=== PATIENT | female | born 1935 | race Caucasian/White ===

== ENCOUNTER 2018-08-02 10:05 | Inpatient (IN) | payer OTHER ==
--- NOTE | 2018-08-02 06:43 | PDHPUP ---
History & Physical Update H&P update statement: This history and physical update is based on an assessment of the patient which was completed after admission or registration (within 24 hours), but prior to the surgery/procedure. H&P update: H&P reviewed & patient examined, no change in patient's condition since H&P completed
[~2018-08-02 10:05] MED LIST: BACITRACIN 50,000 UNITS/10 ML SYR IRR ONE; BUPIVACAINE 0.25% 30 ML SDV ONE; CHLORHEXIDINE GLUC HIBICLENS 118 ML BTL TP ONE; EPINEPHrine 1 MG/ML INJ ONE; REFRESH EYE EACHEYE PRN; THROMBIN (BOVINE) 5,000 UNIT VIAL TP ONE; ZOLPIDEM TARTRATE 5 MG TAB PO PRN
[2018-08-02] MEDS ORDERED: GABAPENTIN 300 MG CAP PO ONE (10:45)
[2018-08-02] MEDS ORDERED: ACETAMINOPHEN 500 MG TAB PO ONE (10:45)
[2018-08-02] MEDS ORDERED: ceFAZolin 2 GM/DEXTROSE 100 ML IV ONE (10:45)
[2018-08-02] MEDS ORDERED: DEXAMETHASONE 4 MG/ML VIAL ONE (10:47)
[2018-08-02] MEDS ORDERED: ROCURONIUM 50 MG/5 ML VIAL ONE (10:47)
[2018-08-02] MEDS ORDERED: ONDANSETRON 4 MG/2 ML VIAL ONE (10:47)
[2018-08-02] MEDS ORDERED: LIDOCAINE 2% 100 MG/5 ML SYR ONE (10:47)
[2018-08-02] MEDS ORDERED: SUGAMMADEX SODIUM 200 MG/2 ML VIAL IVP ONE (10:47)
[2018-08-02] MEDS ORDERED: REMIFENTANIL HCL 1 MG VIAL ONE ×2 (10:48→13:23)
[2018-08-02] MEDS ORDERED: PROPOFOL/EMULSION 500 MG/50 ML BOTTLE IV ONE ×3 (10:48→13:23)
[2018-08-02] MEDS ORDERED: PROPOFOL 200 MG/20 ML VIAL ONE (10:48)
[2018-08-02] MEDS ORDERED: PHENYLEPHRINE HCL 100 MCG/ML SYR ONE (10:48)
[2018-08-02] MEDS ORDERED: PHENYLEPHRINE 10 MG/ML SDV ONE (10:48)
[2018-08-02] MEDS ORDERED: LR 1,000 ML IV ONE (10:49)
[2018-08-02] MEDS ORDERED: ONDANSETRON DISINTEGRATING 4 MG TAB PO PRN (11:37)
[2018-08-02] MEDS ORDERED: diphenhydrAMINE 25 MG CAP PO PRN (11:37)
[2018-08-02] MEDS ORDERED: POLYETHYLENE GLYCOL 3350 17 GM PKT PO PRN (11:37)
[2018-08-02] MEDS ORDERED: LACTULOSE 20 GM/30 ML UDCUP PO PRN (11:37)
[2018-08-02] MEDS ORDERED: MAGNESIUM HYDROXIDE 30 ML UDCUP PO PRN (11:37)
[2018-08-02] MEDS ORDERED: HYDROmorphONE/DILAUDID 1 MG/ML INJ IVP PRN (11:37)
[2018-08-02] MEDS ORDERED: ONDANSETRON 4 MG/2 ML VIAL IVP PRN (11:37)
[2018-08-02] MEDS ORDERED: BISACODYL 10 MG SUPP PR PRN (11:37)
[2018-08-02] MEDS ORDERED: oxyCODONE IR 5 MG TAB PO PRN (11:37)
[2018-08-02] MEDS ORDERED: MIDAZOLAM 2 MG/2 ML VIAL IVP ONE (11:43)
--- NOTE | 2018-08-02 11:43 | PDANEPAE ---
ANE History of Present Illness L4-S1 TLIF for chronic back pain ANE Past Medical History - Cardiovascular History Hx Hypertension: Yes Hx Arrhythmias: No Hx Chest Pain: No Hx Coronary Artery / Peripheral Vascular Disease: No Hx CHF / Valvular Disease: No Hx Palpitations: No - Pulmonary History Hx COPD: No Hx Asthma/Reactive Airway Disease: No Hx Recent Upper Respiratory Infection: No Hx Oxygen in Use at Home: No Hx Sleep Apnea: No Sleep Apnea Screening Result - Last Documented: Negative - Neurologic History Hx Cerebrovascular Accident: No Hx Seizures: No Hx Dementia: No - Endocrine History Hx Diabetes: No - Renal History Hx Renal Disorders: No - Liver History Hx Hepatic Disorders: No - Neurological & Psychiatric Hx Hx Neurological and Psychiatric Disorders: No - Cancer History Hx Cancer: No - Congenital Disorder History Hx Congenital Disorders: No - GI History Hx Gastrointestinal Disorders: Yes Gastrointestinal History Comment: acid reflux,digestion. hx of ulcers - Other Health History Other Health History: none - Chronic Pain History Chronic Pain: No - Surgical History Prior Surgeries: R AALIYAH 2017 ANE Review of Systems Review of Systems: - Exercise capacity METS (RN): 4 METS ANE Patient History - Allergies Allergies/Adverse Reactions: Penicillins Allergy (Verified 07/24/18 11:15) Rash - Home Medications Home Medications: Amitriptyline HCl 25 mg PO HS 07/24/18 [Last Taken 08/01/18] C/E/Zn/Cu/OM3/DHA/EPA/LUT/ZEAX [Preservision Areds 2 Softgel] 1 each PO BID [Last Taken 08/01/18] Herbals/Supplements -Info Only 1 ea PO DAILY 07/24/18 [Last Taken 08/01/18] Losartan Potassium 100 mg PO DAILY 07/24/18 [Last Taken 08/02/18] Omeprazole 40 mg PO DAILY 07/24/18 [Last Taken 08/01/18] Refresh Eye Drops 1 drop EACHEYE Q2H PRN 07/24/18 [Last Taken 08/01/18] Zolpidem Tartrate [Ambien 5MG (*)] 5 mg PO HS PRN 07/24/18 [Last Taken 08/01/18] cycloSPORINE 0.05% [Restasis Opht Drops(*)] 1 drop EACHEYE BID 07/24/18 [Last Taken 08/02/18] - NPO status NPO Since - Liquids (Date): 08/02/18 NPO Since - Liquids (Time): 07:30 NPO Since - Solids (Date): 08/01/18 NPO Since - Solids (Time): 18:30 - Smoking Hx Smoking Status: Former smoker - Family Anes Hx Family Hx Anesthesia Complications: none ANE Labs/Vital Signs - Vital Signs Blood Pressure: 144/83 Heart Rate: 80 Respiratory Rate: 16 O2 Sat (%): 96 Height: 157.48 cm Weight: 53.07 kg ANE Physical Exam - Airway Neck exam: FROM Mallampati Score: Class 1 Mouth exam: normal dental/mouth exam - Pulmonary Pulmonary: no respiratory distress, no rales or rhonchi - Cardiovascular Cardiovascular: regular rate and rhythym, no murmur, rub, or gallop - ASA Status ASA Status: II ANE Anesthesia Plan Anesthesia Plan: general endotracheal anesthesia Total IV Anesthesia: Yes
[2018-08-02] MEDS ORDERED: NS 1,000 ML IV SCH (11:45)
[2018-08-02] MEDS ORDERED: BUPIVACAINE 0.25% 30 ML SDV ONE (12:34)
--- NOTE | 2018-08-02 14:00 | PDMN ---
Medical Necessity Medical necessity: Pt meets inpt criteria per MD order and [facility] [place] [facility], Lumbar Fusion, 3 days, inpt only list. 83 y/o admitted for surgery: Removal of hardware @ L4/5 w/new TLIF L5-S1 w/PSF L4-S1 and post-op care.
[2018-08-02] MEDS ORDERED: NALOXONE HCL 0.4 MG/ML INJ IVP PRN ×2 (15:43→16:39)
[2018-08-02] MEDS ORDERED: DIAZEPAM 5 MG/ML 1 ML SYR IVP PRN (15:43)
[2018-08-02] MEDS ORDERED: LABETALOL HCL 5 MG/ML 20 ML MDV IVP PRN (15:43)
[2018-08-02] MEDS ORDERED: HYDROmorphONE/DILAUDID 2 MG/ML INJ IVP PRN (15:43)
[2018-08-02] MEDS ORDERED: MEPERIDINE 25 MG/0.5 ML AMP IVP PRN (15:43)
--- NOTE | 2018-08-02 15:50 | POSTOPPROG ---
Post Op Note Date of Operation: 08/02/18 Surgeon: Galileo Castillo Roll Clamp Operator: JESENIA Valladares Anesthesiologist: DO Eduardo Anesthesia: GET(General Endotracheal), Local (Specify) Pre-op Diagnosis: lumbar stenosis L5/S1 Post-op Diagnosis: lumbar stenosis L5/S1 Indication: RLE pain Procedure: removal of hardware L4/5 with TLIF L5/S1 with PSF L4-S1 Findings: see op report Inf/Abcess present in the surg proc area at time of surgery?: No Depth: Deep Incisional (Fascial) EBL: 100-500 Total fluids administered: see anesthesia record Complications: none Drains: Alejandro Boateng
--- NOTE | 2018-08-02 15:53 | SOAPPROG ---
SOAP Progress Note Assessment/Plan: Post Op Visit: S: Awake and alert. Pt with expected lower back pain. O: AFVSS/PERRLA/EOMI no droop CN 2-12 grossly intact +lt touch 5/5 BUE/BLE = CDI JUNIOR in place A/P: 83 yo female with RLE pain and LBP that is s/p TLIF L5/S1 with removal of hardware at L4/5 with PSF L4-S1 -orders in place -PT/OT pending -brace when out of bed -post op xrays pending -pt seen by Dr Castillo as well Objective: Vital Signs Temp Pulse Resp BP Pulse Ox 37.0 C 80 16 144/83 H 96 08/02/18 10:55 08/02/18 11:43 08/02/18 11:43 08/02/18 11:43 08/02/18 11:43 ICD10 Worksheet Patient Problems: Problems Problem Status Onset Arthrodesis status Acute Lumbar radicular pain Acute Lumbar stenosis Acute S/P hardware removal Acute - ICD10 Problem Qualifiers (1) S/P hardware removal (2) Lumbar stenosis (3) Lumbar radicular pain (4) Arthrodesis status
[2018-08-02] MEDS ORDERED: fentaNYL 100 MCG/2 ML INJ ONE (16:14)
[2018-08-02] MEDS ORDERED: DIAZEPAM 5 MG/ML 1 ML SYR ONE (16:15)
[2018-08-02] MEDS: fentaNYL 100 MCG/2 ML INJ IVP PRN ×2 (16:22→16:27)
--- NOTE | 2018-08-02 16:29 | GOP ---
[f rep st] OPERATIVE REPORT DATE OF OPERATION: 08/02/2018 SURGEON: Camilo Castillo MD NEUROSURGEON: Camilo Castillo MD. [employer] WORKER: Esau Valladares PA-C. PREOPERATIVE DIAGNOSIS: Lumbar stenosis, lumbar adjacent segment disease L5-S1, lumbar scoliosis, pr ior lumbar fusion L4-5, severe right lumbosacral radiculopathy. POSTOPERATIVE DIAGNOSIS: Lumbar stenosis, lumbar adjacent segment disease L5-S1, lumbar scoliosis, p rior lumbar fusion L4-5, severe right lumbosacral radiculopathy. PROCEDURE PERFORMED: Removal of posterior nonsegmental hardware at a single interspace L4-5 (86934), placement of new posterior segmental hardware at L4, L5 and S1. There was no prior hardware on the left side at L4-5, S1. On the right side, there were prior hardware at L4-5. This had been removed ( [id number]), posterior-lateral and intervertebral arthrodesis L5-S1 (12656), placement of biomechanical in tervertebral device L5-S1 (17048), same-incision bone graft harvest, microscope, spinal stereotaxis. FINDINGS: ESTIMATED BLOOD LOSS: 150 cc. INDICATIONS: The patient is an 83-year-old with terrible right-sided pain radiating down the posteri or aspect of her leg and there was some pain radiating into the posterior aspect of the leg and then in the posterior lateral leg as well. It was predominantly an S1 pattern, but the possibility of an L 5 pattern was considered and she had total collapse of the L5-S1 disk and neural foramen and a large prolapse bilaterally at L5-S1 into the spinal canal creating severe lateral recess stenosis for both of the S1 roots. She appeared to have a unilateral fusion construct on the right at L4-5 and there w as evidence of bony union. I was not concerned with the quality of that prior fusion. I suggested r emoval of that hardware and adjacent segment fusion at L5-S1. She actually had considerable disease at L3-4, L2-3 and she had a degenerative scoliotic curve and naturally was concerned about the remain ing portions of her spine, but I thought the single segment was causing her symptoms and I thought th e reasonable surgery would be to consider a single-level approach. I did not think her bone quality o r advanced age would candie well for doing a huge reconstructive surgery of the entire lumbar spine and I discussed that with her. The risk of continued symptoms, nerve injury, spinal fluid leak, pseudoar throsis, screw and hardware malposition and malfunction was discussed. She accepted those risks. Jeanette youngblood knew there was a chance surgery would fail to alleviate her symptoms and there was a risk of infect ion. She wanted to proceed. DESCRIPTION OF PROCEDURE: The patient was taken to the operating room, placed in a supine position. General anesthesia was begun. She was flipped prone onto the Alejandro table. Care was taken to pad all points of contact. Her back was sterilely prepped and draped in the usual fashion. A localizing x-ray was taken. She had a prior incision and we decided to use the prior incision. It was quite l anthony and I thought we could both remove the hardware and do the new surgery through the same incision and indeed we did. We numbed the marci-incisional area and then opened the prior incision in the midli ne. The subcutaneous tissue was dissected using a plasma blade down through the fascia and a subperi osteal dissection was made down the inferior lamina of L3, the lamina of L4, L5 and the sacrum was e xposed. The prior hardware was exposed on the right. It was a Steffee plate and it was quite difficu lt to remove. The removal system had been sent in did not really have the proper fitting nut drivers to remove the top of the nuts and we had to remove these by hand. This took considerable time, but w e were able to release the Steffee plate and remove the plate and then the washers over the posts the mselves and then we had to drill out the bone around the post and then remove the posts by hand as we ll. We were able to get this done, but it took considerable time and it was much more difficult than it normally would be. We then decorticated and denuded the hypertrophic L5-S1 facet joint and attac hed a Stealth reference frame. Her bone quality was somewhat poor, but we then placed pedicle screws bilaterally at S1 and bilaterally at L4 and L5. We used the prior trajectories at L4 and L5 on the right. They were slightly suboptimal located in the inferior pedicle trajectory and we placed new sc rews and the right L5 screws stemmed at 12. We performed an O-arm spin and it appeared to be an exce llent screw, but it was located at the inferior border of the pedicle itself. I did not see clear ev idence of a breach into the neural foramen and the 12 mm threshold of that screw was considered accep table. We placed rods down over the screws, distracted slightly at L5-S1. We then removed the L5-S1 lamina and harvested this for autologous grafting purposes. Under the microscope, we drilled bilate ral laminas of L5-S1 and there was severe bilateral recess stenosis. We removed the right L5-S1 face t joint and then under the microscope completely removed the 5-1 disk and the cartilaginous endplates . We roughened the subchondral bone to create arthrodesis, sized the space and chose a 7 x 28 mm dev ice. We packed the space with bone autograft and BMP and inserted the device and then expanded the d evice under fluoroscopic guidance. A great fit was obtained. An x-ray was taken. We were very happy with the position of the device. We then decorticated all the remaining bone posterolaterally, plac ed bone autograft and BMP posterolaterally bilaterally and then placed a subfascial drain and then cl osed the incision in multiple layers using Vicryl sutures. Steri-Strips were applied to the skin. Th e patient was reversed from anesthesia, extubated and transferred to recovery room in stable conditio n. There was no complications. COMPLICATIONS: None. /[id number]/MODL
--- NOTE | 2018-08-02 16:46 | POSTANESTH ---
Post Anesthetic Evaluation Cardiovascular Status: Normal, Stable, Tx Hyper/Hypo-tension Respiratory Status: Normal, Stable Level of Consciousness/Mental Status: Can Participate in Eval, Mildly Sleepy, Arousable Pain Control: Adequate, Prn Tx Ordered Nausea/Vomiting Control: Adequate, Prn Tx Ordered Complications Possibly Related to Anesthesia: None Noted (called for persistant low BP and ordered ephedrine IV PRN, asked to be called of any further issues. pt awake and responsive with BP that was low, feeling comfortable)
[2018-08-02] MEDS: cycloSPORINE 0.05% 30 DROPERETTE/BOX EACHEYE SCH ×2 (21:52→22:02)
[2018-08-02] MEDS: PRESERVISION AREDS2 FORMULA EYE VIT 1 EACH PO SCH (21:52)
[2018-08-02] MEDS: GABAPENTIN 300 MG CAP PO SCH ×2 (21:54→21:57)
[2018-08-02] MEDS: ACETAMINOPHEN 500 MG TAB PO SCH ×2 (21:54→21:57)
[2018-08-02] MEDS: METHOCARBAMOL 750 MG TAB PO PRN (21:56)
[2018-08-02] MEDS: AMITRIPTYLINE HCL 25 MG TAB PO SCH (21:57)
[2018-08-02] MEDS: FAMOTIDINE 20 MG TAB PO SCH (21:58)
[2018-08-02] MEDS: SENNOSIDES/DOCUSATE SODIUM TAB PO SCH (21:58)
[2018-08-02] MEDS: ceFAZolin 2 GM/DEXTROSE 100 ML IV SCH (22:05)
[2018-08-03] MEDS: PRESERVISION AREDS2 FORMULA EYE VIT 1 EACH PO SCH ×3 (04:25→22:05)
[2018-08-03] MEDS: ceFAZolin 2 GM/DEXTROSE 100 ML IV SCH (04:26)
[2018-08-03 05:48] LABS: PLATELET COUNT 255 10^3/uL (150-400)
[2018-08-03] MEDS: ACETAMINOPHEN 500 MG TAB PO SCH ×3 (05:57→22:03)
[2018-08-03] MEDS: GABAPENTIN 300 MG CAP PO SCH ×3 (05:58→22:07)
--- NOTE | 2018-08-03 07:59 | NEUSURGPN ---
Date of Surgery: 08/02/18 Post Op Day: 1 Assessment/Plan: Assessment: 83 yo female with RLE pain and LBP that is s/p TLIF L5/S1 with removal of hardware at L4/5 with PSF L4-S1 POD #1 Plan: -s/p L spine fusion: pt states lower back feels fine. She can not give me an update on the RLE pain as she had the pain with walking. We will see how she does today with walking -orders in place -PT/OT pending -brace when out of bed -JUNIOR in place -post op xrays pending -H/H 02/26- will recheck H/H in am -call with any questions or concerns -pt seen by Dr Castillo as well -warning signs reviewed Subjective: Awake and alert. NAD. Eating/drinking and voiding. No f/c/n/v/d. Pt with expected lower back pain but states that this is "fine" Objective: AFVSS/PERRLA/EOMI no droop CN 2-12 grossly intact +lt touch 5/5 BUE/BLE = CDI JUNIOR in place Neuro Check Frequency: per routine Urinary Catheter in Place: No - Physician Discussed Patient with .: Jonathan Patient Seen by : Jonathan Neurosurgery Physical Exam - Vitals, I&O, Labs I and O 08/02/18 08/03/18 08/04/18 05:59 05:59 05:59 Intake Total 3100 Output Total 1675 150 Balance 1425 -150 Weight 52.617 kg Intake: Oral (ml) 600 IV Intake (ml) 2500 Output: Urine (ml) 1200 150 Catheter 1200 150 Estimated Blood Loss (ml) 150 JUNIOR Drain Output (ml) 325 Left Posterior Back 325 Alejandro Boateng Other: Intake Quantity No: sleeping No: sleeping Sufficient Vital Signs Temp Pulse Resp BP Pulse Ox 36.6 C 72 16 116/60 97 08/03/18 07:47 08/03/18 07:47 08/03/18 07:47 08/03/18 07:47 08/03/18 07:47 Laboratory Results 08/03/18 05:10 08/03/18 05:10 ICD10 Worksheet Patient Problems: Problems Problem Status Onset Arthrodesis status Acute Lumbar radicular pain Acute Lumbar stenosis Acute S/P hardware removal Acute - ICD10 Problem Qualifiers (1) S/P hardware removal (2) Lumbar stenosis (3) Lumbar radicular pain (4) Arthrodesis status
[2018-08-03] MEDS: METHOCARBAMOL 750 MG TAB PO PRN ×2 (09:39→13:57)
[2018-08-03] MEDS: SENNOSIDES/DOCUSATE SODIUM TAB PO SCH ×2 (09:39→22:08)
[2018-08-03] MEDS: PANTOPRAZOLE SODIUM 40 MG TAB PO SCH (09:40)
[2018-08-03] MEDS: FAMOTIDINE 20 MG TAB PO SCH ×2 (09:40→22:06)
[2018-08-03] MEDS: LOSARTAN POTASSIUM 50 MG TAB PO SCH (09:47)
[2018-08-03] MEDS: cycloSPORINE 0.05% 30 DROPERETTE/BOX EACHEYE SCH ×2 (09:50→22:08)
--- NOTE | 2018-08-03 15:11 | ASMTCMCOM ---
CM Note CM Note Notes: Pt had planned surgery, resides alone. PT/OT rec SNF today. Spoke with pt and dghtr Ayleen who request referral to [facility]. [facility] accept pt and already has [employer] insurance authorization for when pt is medically ready for d/c. CM to follow. D/c plan of care: [facility] Date Signed: 08/03/2018 03:10 PM Electronically Signed By:KELBY Gale
[2018-08-03] MEDS: AMITRIPTYLINE HCL 25 MG TAB PO SCH (22:04)
[2018-08-04] MEDS: GABAPENTIN 300 MG CAP PO SCH (05:43)
[2018-08-04] MEDS: PRESERVISION AREDS2 FORMULA EYE VIT 1 EACH PO SCH (08:27)
[2018-08-04] MEDS: METHOCARBAMOL 750 MG TAB PO PRN (08:27)
[2018-08-04] MEDS: PANTOPRAZOLE SODIUM 40 MG TAB PO SCH (08:27)
[2018-08-04] MEDS: FAMOTIDINE 20 MG TAB PO SCH (08:27)
[2018-08-04] MEDS: SENNOSIDES/DOCUSATE SODIUM TAB PO SCH (08:27)
--- NOTE | 2018-08-04 10:00 | NEUSURGPN ---
Date of Surgery: 08/02/18 Post Op Day: 2 Assessment/Plan: 83 yo female with RLE pain and LBP that is s/p TLIF L5/S1 with removal of hardware at L4/5 with PSF L4-S1 POD #2 Plan: -neuro stable -pain controlled -remove JUNIOR drain -postop L-spine x-rays done -wear brace when out of bed -PT/OT -H&H stable this morning -stable for discharge to SNF when bed available Discussed with Dr. Castillo. Subjective: Awake. Alert. PERRL. EOMI Facial expression symmetrical Muscle strength full at 5/5 Sensation intact - Physician Discussed Patient with : Jonathan Neurosurgery Physical Exam - Vitals, I&O, Labs I and O 08/03/18 08/04/18 08/05/18 05:59 05:59 05:59 Intake Total 3100 850 Output Total 1675 2020 1010 Balance 1425 -1170 -1010 Weight 52.617 kg Intake: Oral (ml) 600 850 IV Intake (ml) 2500 Output: Urine (ml) 1200 1750 1000 Catheter 1200 150 Toilet 1600 1000 Estimated Blood Loss (ml) 150 JUNIOR Drain Output (ml) 325 270 10 Left Posterior Back 325 270 10 Alejandro Boateng Other: Intake Quantity No: sleeping No: sleeping Sufficient Number of Voids Toilet 1 Vital Signs Temp Pulse Resp BP Pulse Ox 36.4 C 71 16 112/59 L 92 08/04/18 08:00 08/04/18 08:00 08/04/18 08:00 08/04/18 08:00 08/04/18 08:00 Laboratory Results 08/04/18 05:06 08/03/18 05:10 ICD10 Worksheet Patient Problems: Problems Problem Status Onset Arthrodesis status Acute Lumbar radicular pain Acute Lumbar stenosis Acute S/P hardware removal Acute
--- NOTE | 2018-08-04 10:07 | PDIAF ---
- Diagnosis Diagnosis: Lumbar stenosis Code Status: Full Code - Medication Management Discharge Medications: electronically signed and located in the Home Medication List. - Orders Services needed: Registered Nurse, Physical Therapy, Occupational Therapy Diet Recommendation: no restrictions on diet Diet Texture: Regular Texture Diet Wound Care Instructions: Ok to shower and get incision wet. Be gentle. No scrubbing. Activity/Weight Bearing Restrictions: Wear brace when out of bed. No bending, twisting, or lifting more than 10 pounds. Additional Instructions: 1. Follow up with Dr. Castillo in 2 weeks. [phone] 2. Wear brace when out of bed. No bending, twisting, or lifting. 3. Avoid NSAIDs as these inhibit the fusion process 4. Ok to shower and get incision wet, be gentle, no scrubbing. 5. Call Dr. Castillo's office with any questions/concerns. - Follow Up Care Current Providers and Referrals: KELL PITTS [Primary Care Provider] - Galileo Castillo MD [Medical Doctor] - follow up in 2 weeks
[2018-08-04] MEDS: LOSARTAN POTASSIUM 50 MG TAB PO SCH (10:24)
[2018-08-04] MEDS: ACETAMINOPHEN 500 MG TAB PO SCH (10:28)
[2018-08-04] MEDS: cycloSPORINE 0.05% 30 DROPERETTE/BOX EACHEYE SCH (11:36)
[2018-08-04 12:16] VITALS: BP 128/64
--- NOTE | 2018-08-04 13:54 | ASMTLACE ---
LACE Length of stay for Answers: 3 days current admission Acuity / Level of Answers: Yes Care: Did the patient have an inpatient admission? Comorbidities - select Answers: Other Notes: HTN all that apply # of Emergency department Answers: 0 visits in the last 6 months Score: 7 Date Signed: 08/04/2018 01:53 PM Electronically Signed By:KELBY Gale
--- NOTE | 2018-08-04 13:59 | ASMTCMCOM ---
CM Note CM Note Notes: Pt medically stable for d/c to [facility]. Re[facility] with [facility] scheduled wc transport for 1400. Pt dghtr Ayleen updated. CARROL Villa to call report. CARROL Shaffer and Reina not concerned about pt BM status, Ayleen updated. Date Signed: 08/04/2018 01:58 PM Electronically Signed By:KELBY Gale
--- NOTE | 2018-08-04 15:02 | ASDISCHSUM ---
Discharge Information Plan Status:SNF Medically Cleared to Leave: Discharge Date:08/04/2018 02:25 PM CM D/C Disposition: ADT D/C Disposition:Shelter Facility Projected Discharge Date:08/05/2018 11:00 AM Transportation at D/C: Discharge Delay Reason: Follow-Up Date:08/05/2018 11:00 AM Discharge Slot: Final Diagnosis: Placement Information Referral Type:*Half-Way/SNF Referral ID:[id number] Provider Name:[facility] Address 1:[address] Address 2: City:[place] Selection Factors: State:[place] Patient Contact Information Contact Name:CARLI Relationship:Daughter Address: Work Phone: City: [facility] Phone: [facility] Code: Email: Financial Information Financial Class:Medicare Advantage Plans Primary Plan Desc:[facility] ADVANTAGE PLANS Primary Plan Number:[id number] Secondary Plan Desc: Secondary Plan Number: Assessment Information LACE LACE Length of stay for Answers: 3 days current admission Acuity / Level of Answers: Yes Care: Did the patient have an inpatient admission? Comorbidities - select Answers: Other Notes: HTN all that apply # of Emergency department Answers: 0 visits in the last 6 months Score: 7 Date Signed: 08/04/2018 01:53 PM Electronically Signed By:KELBY Gale [facility] CM Progress Note CM Note CM Note Notes: Pt had planned surgery, resides alone. PT/OT rec SNF today. Spoke with pt and jesusita Abbasi who request referral to [facility]. [facility] pt and already has [employer] insurance authorization for when pt is medically ready for d/c. CM to follow. D/c plan of care: [facility] Date Signed: 08/03/2018 03:10 PM Electronically Signed By:KELBY Gale [facility] CM Progress Note CM Note CM Note Notes: Pt medically stable for d/[facility] to [facility]. [facility] scheduled wc transport for 1400. Pt dghtr Ayleen real. CARROL Villa to call report. CARROL Shaffer and Reina not concerned about pt BM status, Ayleen updated. Date Signed: 08/04/2018 01:58 PM Electronically Signed By:KLEBY Gale Intervention Information
[2018-08-05] MEDS ORDERED: ENOXAPARIN 40 MG/0.4 ML SYR SC SCH (09:00)
== END 2018-08-04 14:25 | DRG 455 ==
LOC: F3N 10:05
PROVIDERS: ADMIT Neurological Surgery; ATTEND Neurological Surgery
DX: M48.062 Spinal stenosis, lumbar region with neurogenic claudication (principal); M41.86 Other forms of scoliosis, lumbar region; M54.17 Radiculopathy, lumbosacral region; Z98.1 Arthrodesis status; I10 Essential (primary) hypertension; K21.9 Gastro-esophageal reflux disease without esophagitis; Z96.641 Presence of right artificial hip joint; Z87.891 Personal history of nicotine dependence
CPT/HCPCS: 97116-GP; 97162-GP; 97165-GO; 97530-GP; C1713; J0171; J0690; J1100; J2001; J2250; J2370; J2405; J2704; J3010; J3360